=== PATIENT | female | born 1940 | race Two or more races ===

== ENCOUNTER 2018-02-20 09:04 | Emergency (ER) | payer OTHER ==
[~2018-02-20] VITALS: Ht 162.6 cm; Wt 65.8 kg
== END 2018-02-20 14:07 | disposition home or self-care (01) ==
LOC: ER 09:04
DX: K29.60 Other gastritis without bleeding (principal)

== ENCOUNTER 2018-09-03 | Emergency (ER) | payer OTHER ==
[~2018-09-03] VITALS: Ht 165.1 cm; Wt 68.0 kg
[2018-09-03] MEDS ORDERED: METFORMIN HCL500 MG (00:24)
[2018-09-03] MEDS ORDERED: ZYRTEC10 M3 PO (03:06)
[2018-09-03] MEDS ORDERED: MEDROLPACK PO (03:06)
[2018-09-03] MEDS ORDERED: TRIANEX430 GM TOP (03:06)
== END 2018-09-03 03:59 ==
LOC: ER
DX: L50.0 Allergic urticaria (principal)

== ENCOUNTER 2019-07-15 16:31 | Emergency (ER) | payer OTHER ==
[~2019-07-15] VITALS: Ht 170.2 cm; Wt 65.8 kg
[~2019-07-15 16:31] MED LIST: MEDROLPACK PO; METFORMIN HCL500 MG; TRIANEX430 GM TOP; ZYRTEC10 M3 PO
== END 2019-07-15 22:08 | disposition home or self-care (01) ==
LOC: ER 16:31
DX: K29.60 Other gastritis without bleeding (principal); N39.0 Urinary tract infection, site not specified